=== PATIENT | female | born 1995 | race Caucasian/White ===

== ENCOUNTER 2017-04-10 14:05 | Inpatient (IN) | payer OTHER ==
[2017-04-10 14:19] LABS: BILIRUBIN,URINE NEGATIVE (NEGATIVE); BLOOD/HEMOGLOBIN,URINE 1+ (NEGATIVE); GLUCOSE, URINE NEGATIVE (NEGATIVE); KETONES,URINE NEGATIVE (NEGATIVE); LEUKOCYTE ESTERASE ,URINE NEGATIVE (NEGATIVE); NITRITES,URINE NEGATIVE (NEGATIVE); PROTEIN,URINE 1+ (NEGATIVE); UROBILINOGEN,URINE 2+ (NORMAL)
[2017-04-10 14:21] VITALS: BMI 32.3
[2017-04-10 14:38] LABS: APPEARANCE,URINE CLEAR (CLEAR); BACTERIA,URINE TRACE /HPF (NEGATIVE); COLOR,URINE DARK YELLOW (YELLOW); MUCUS,URINE FEW /HPF (NEGATIVE); SQUAMOUS EPITHELIAL CELL,UR FEW /HPF (NEGATIVE)
[2017-04-10 14:39] LABS: AMNISURE ROM TEST THERE IS A RUPTURE (NO RUPTURE)
[2017-04-10] MEDS ORDERED: ANCEF VIAL 1 GM ONE (15:06)
[2017-04-10 15:08] LABS: BASOPHILS # (AUTO) 0.1 X10^3/uL (0.0-0.1); BASOPHILS % (AUTO) 0.8 % (0.2-1.0); EOSINOPHILS # (AUTO) 0.1 x10^3/uL (0.0-0.2); EOSINOPHILS % (AUTO) 0.9 % (0.9-2.9); HEMATOCRIT 32.6 % (36.0-47.0); HEMOGLOBIN 10.8 g/dL (12.0-16.0); LYMPHOCYTES # (AUTO) 3.4 X10^3/uL (1.3-2.9); LYMPHOCYTES % (AUTO) 20.4 % (21.0-51.0); MEAN CORPUSCULAR HEMOGLOBIN 26.3 pg (27.0-34.0); MEAN CORPUSCULAR HGB CONC 33.2 g/dL (33.0-35.0); MEAN CORPUSCULAR VOLUME 79.2 fL (80.0-100.0); MEAN PLATELET VOLUME 8.6 fL (7.4-11.0); MONOCYTES % (AUTO) 6.2 % (0.0-13.0); NEUTROPHILS # (AUTO) 11.9 x10^3/uL (2.2-4.8); NEUTROPHILS % (AUTO) 71.7 % (42.0-75.0); PLATELET COUNT 289 X10^3/uL (150.0-450.0); RED BLOOD COUNT 4.11 X10^6/uL (3.5-5.4); RED CELL DISTRIBUTION WIDTH 14.7 % (11.6-16.5); WHITE BLOOD COUNT 16.5 X10^3/uL (3.6-10.0)
[2017-04-10 15:20] LABS: ALANINE AMINOTRANSFERASE 14 Units/L (12-78); ALBUMIN 2.3 g/dL (3.4-5.0); ALKALINE PHOSPHATASE 198 Units/L (45-150); ASPARTATE AMINO TRANSFERASE 19 Units/L (15-37); BLOOD UREA NITROGEN 7 mg/dL (7-18); CALCIUM 8.5 mg/dL (8.5-10.1); CARBON DIOXIDE 22.2 mmol/L (21-32); CHLORIDE 105 mmol/L (98-107); COR CA(FOR HYPOALB) 9.9 mg/dL (8.5-10.1); CREATININE 0.46 mg/dL (0.55-1.02); SODIUM 132 mmol/L (136-145); TOTAL PROTEIN 6.7 g/dL (6.4-8.2); eGFR BLACK RACES > 60 (>60); eGFR NON BLACK RACES > 60 (>60)
[2017-04-10] MEDS ORDERED: NS 50 ML IV + SPIKE MINIBAG* 50 ML IV ONE (15:22)
[2017-04-10] MEDS ORDERED: PITOCIN ONE (15:25)
[2017-04-10] MEDS ORDERED: EPHEDRINE SULFATE INJ ONE (15:25)
[2017-04-10] MEDS ORDERED: VERSED ONE (15:25)
[2017-04-10] MEDS: LR 1000 ML IV 1,000 ML IV ONE ×2 (15:37→15:45)
[2017-04-10] MEDS ORDERED: NS IRRIGATION 1000 ML 1,000 ML IR ONE ×2 (15:38)
[2017-04-10] MEDS ORDERED: DURAMORPH ONE (15:39)
[2017-04-10] MEDS ORDERED: D5 1/2 NS 1L W PITOCIN 20 UNITS/L 20 UNITS/1,000 ML BAG IV ONE (15:44)
[2017-04-10] MEDS ORDERED: LR 1000 ML IV 1,000 ML IV ONE (15:44)
[2017-04-10] MEDS ORDERED: ANCEF VIAL 1 GM 1 GM in NS 50 ML IV + SPIKE MINIBAG* 50 ML IV PRN (15:52)
[2017-04-10] MEDS ORDERED: D5 1/2 NS 1000 ML 1,000 ML IV SCH (16:00)
[2017-04-10 16:20] LABS: BILIRUBIN,URINE NEGATIVE (NEGATIVE); BLOOD/HEMOGLOBIN,URINE 1+ (NEGATIVE); GLUCOSE, URINE NEGATIVE (NEGATIVE); KETONES,URINE 2+ (NEGATIVE); LEUKOCYTE ESTERASE ,URINE 1+ (NEGATIVE); NITRITES,URINE NEGATIVE (NEGATIVE); PROTEIN,URINE NEGATIVE (NEGATIVE); UROBILINOGEN,URINE 2+ (NORMAL)
[2017-04-10 16:24] LABS: APPEARANCE,URINE CLEAR (CLEAR); COLOR,URINE YELLOW (YELLOW)
[2017-04-10] MEDS ORDERED: ZOFRAN INJ 4 MG VIAL IVP PRN ×2 (16:30→16:49)
[2017-04-10] MEDS ORDERED: REGLAN INJ 10 MG VIAL IVP PRN ×2 (16:30→16:49)
[2017-04-10] MEDS ORDERED: BENADRYL INJ 50 MG VIAL IVP PRN ×2 (16:30→16:49)
[2017-04-10] MEDS ORDERED: PHENERGAN INJ 25 MG IVP PRN (16:30)
[2017-04-10 16:43] LABS: SQUAMOUS EPITHELIAL CELL,UR FEW /HPF (NEGATIVE)
[2017-04-10 16:44] LABS: AMORPHOUS SEDIMENT,UR TRACE /HPF (NEGATIVE); BACTERIA,URINE NEGATIVE /HPF (NEGATIVE)
[2017-04-10] MEDS ORDERED: MOTRIN TAB 800 MG PO PRN (16:49)
[2017-04-10] MEDS ORDERED: PHENERGAN INJ 25 MG IV PRN (16:49)
[2017-04-10] MEDS ORDERED: MYLICON TAB 80 MG CHEW PO PRN (16:49)
[2017-04-10] MEDS ORDERED: PERCOCET TAB 5/325 MG PO PRN (16:49)
[2017-04-10] MEDS ORDERED: TORADOL 30 MG VIAL IVP PRN (16:49)
[2017-04-10] MEDS ORDERED: NARCAN INJ IVP PRN ×2 (16:49)
[2017-04-10] MEDS ORDERED: HYPERRHO S/D (or RHOGAM) IM PRN (16:49)
[2017-04-10] MEDS ORDERED: D5 1/2 NS 1000 ML 1,000 ML with PITOCIN 20 UNITS IV SCH ×2 (17:00)
[2017-04-10] MEDS: ZANTAC PO SCH (21:05)
[2017-04-11 05:28] LABS: HEMATOCRIT 30.4 % (36.0-47.0)
[2017-04-11] MEDS: COLACE CAP 100 MG PO SCH ×2 (08:40→21:14)
[2017-04-11] MEDS: ZANTAC PO SCH ×2 (08:40→21:14)
[2017-04-11] MEDS: PRENATAL PLUS PO SCH (08:40)
[2017-04-11] MEDS: D5 1/2 NS 1000 ML 1,000 ML with PITOCIN 20 UNITS IV SCH ×4 (10:06→17:59)
[2017-04-11] MEDS: BACTROBAN OINT TOP SCH ×2 (13:04→21:14)
[2017-04-11] MEDS: PERCOCET TAB 5/325 MG PO PRN ×2 (17:59→22:34)
[2017-04-12] MEDS: D5 1/2 NS 1000 ML 1,000 ML with PITOCIN 20 UNITS IV SCH ×4 (01:43→08:30)
[2017-04-12] MEDS: PERCOCET TAB 5/325 MG PO PRN ×2 (03:42→08:31)
[2017-04-12] MEDS: BACTROBAN OINT TOP SCH (06:26)
[2017-04-12 07:56] VITALS: BP 129/71
[2017-04-12] MEDS: COLACE CAP 100 MG PO SCH (08:31)
[2017-04-12] MEDS: ZANTAC PO SCH (08:31)
[2017-04-12] MEDS: PRENATAL PLUS PO SCH (08:31)
== END 2017-04-12 13:10 | disposition home or self-care (01) | DRG 765 ==
LOC: ER 14:05 → LD 14:57 → MED/SURG 16:50
PROVIDERS: ADMIT Specialist; ATTEND Specialist
PROC: 10D00Z1 Extraction of Products of Conception, Low, Open Approach (ICD-10-PCS; principal; 2017-04-10 15:45)
PROC: 3E0334Z Introduction of Serum, Toxoid and Vaccine into Peripheral Vein, Percutaneous Approach (ICD-10-PCS; 2017-04-11)
DX: O66.0 Obstructed labor due to shoulder dystocia (principal); Z37.0 Single live birth; O36.0930 Maternal care for other rhesus isoimmunization, third trimester, not applicable or unspecified; Z3A.37 37 weeks gestation of pregnancy; Z23 Encounter for immunization
CPT/HCPCS: 36415; 80053; 80307; 81001; 84112; 85014; 85018; 85025; 85461; 86592; 86850; 86900; 86901; 94640; 99284; A4216; A4222; S0197; G0434; J0690; J2250; J2590; J2790; J7042; J7120

== ENCOUNTER 2019-04-30 06:10 | Inpatient (IN) ==
[2019-04-30] MEDS ORDERED: ANCEF VIAL 1 GRAM IVP ONE (06:33)
[2019-04-30] MEDS ORDERED: D5 1/2 NS 1000 ML 1,000 ML IV SCH (06:33)
[2019-04-30] MEDS ORDERED: ANCEF VIAL 1 GRAM ONE (06:38)
[2019-04-30] MEDS ORDERED: LR 1000 ML IV 1,000 ML IV ONE ×2 (06:38→06:56)
[2019-04-30] MEDS ORDERED: NS 100 ML IV 100 ML IV ONE (06:38)
[2019-04-30] MEDS ORDERED: D5 1/2 NS 1000 ML 1,000 ML IV ONE (06:39)
[2019-04-30] MEDS ORDERED: D5 1/2 NS 1L W PITOCIN 20 UNITS/L 20 UNITS/1,000 ML BAG IV ONE (06:39)
[2019-04-30] MEDS ORDERED: DILAUDID INJ ONE ×2 (06:57→07:08)
[2019-04-30] MEDS ORDERED: DILAUDID INJ IVP PRN (09:03)
[2019-04-30] MEDS ORDERED: PHENERGAN INJ 25 MG IM PRN (09:03)
[2019-04-30] MEDS ORDERED: REGLAN INJ 10 MG VIAL IVP PRN ×2 (09:03→09:27)
[2019-04-30] MEDS ORDERED: ZOFRAN INJ 4 MG VIAL IVP PRN ×2 (09:03→09:27)
[2019-04-30] MEDS ORDERED: BENADRYL INJ 50 MG VIAL IVP PRN ×2 (09:03→09:27)
[2019-04-30] MEDS ORDERED: NARCAN INJ IVP PRN (09:27)
[2019-04-30] MEDS ORDERED: MYLICON TAB 80 MG CHEW PO PRN (09:27)
[2019-04-30] MEDS ORDERED: ADACEL or BOOSTRIX TDaP VACCINE IM ONE (09:27)
[2019-04-30] MEDS ORDERED: TORADOL 30 MG VIAL IVP PRN (09:27)
[2019-04-30] MEDS ORDERED: PERCOCET TAB 5/325 MG PO PRN (09:27)
[2019-04-30] MEDS ORDERED: HYPERRHO S/D (or RHOGAM) IM PRN (09:27)
[2019-04-30] MEDS ORDERED: D5 1/2 NS 1000 ML 1,000 ML with PITOCIN 20 UNITS IV SCH ×2 (10:00)
[2019-04-30] MEDS ORDERED: MARCAINE SPINAL ONE (10:40)
[2019-04-30] MEDS ORDERED: TORADOL 30 MG VIAL ONE (10:40)
[2019-04-30] MEDS ORDERED: ZOFRAN INJ 4 MG VIAL ONE (10:40)
[2019-04-30] MEDS ORDERED: EPHEDRINE SULFATE INJ ONE (10:40)
[2019-04-30] MEDS ORDERED: XYLOCAINE 1 % (PLAIN) ONE (10:40)
[2019-05-01 04:13] LABS: HEMATOCRIT 29.7 % (36.0-47.0); HEMOGLOBIN 9.9 g/dL (12.0-16.0)
[2019-05-01] MEDS ORDERED: MOTRIN TAB 800 MG PO PRN (07:32)
[2019-05-01] MEDS: COLACE CAP 100 MG PO SCH ×2 (08:25→21:15)
[2019-05-01] MEDS ORDERED: NS IRRIGATION 1000 ML ONE (09:26)
[2019-05-01] MEDS: PERCOCET TAB 5/325 MG PO PRN ×2 (11:22→22:00)
[2019-05-01] MEDS: BACTROBAN TOPICAL OINT TOP SCH ×2 (14:08→21:00)
[2019-05-02] MEDS: PERCOCET TAB 5/325 MG PO PRN (05:00)
[2019-05-02] MEDS: BACTROBAN TOPICAL OINT TOP SCH (05:16)
[2019-05-02] MEDS: COLACE CAP 100 MG PO SCH (08:44)
[2019-05-02 11:01] VITALS: BP 126/80
== END 2019-05-02 11:05 | disposition home or self-care (01) | DRG 788 ==
LOC: LD 06:10 → MED/SURG 09:35
PROVIDERS: ADMIT Specialist; ATTEND Specialist
CPT/HCPCS: 36415; 80048; 81001; 85014; 85018; 85025; 85461; 85610; 86592; 86850; 86900; 86901; 87086; 90715; A4216; A4222; J0690; J1170; J1885; J2310; J2405; J2790; J3490; J7050; J7120; S5010